=== PATIENT | male | born 1995 | race Caucasian/White ===

== ENCOUNTER 2019-04-01 23:32 | Emergency (ER) | payer OTHER, SELFPAY ==
[2019-04-01 23:34] VITALS: BP 155/96; PULSE 83; RESP 16; TEMP 35.5; O2SAT 97; BMI 30.7
--- NOTE | 2019-04-02 00:32 | ED.DCSUM_ITS ---
History of Present Illness Chief Complaint: Laceration Detail of Chief Complaint: Bursal surface left hand and left ring finger Informant: Patient Occurred: Today Mechanism/Context: Injury, Incised, Work Related Current Severity: 11/14 Maximum Severity: 10 Worsened by: Palpation Relieved by: Rest Associated Symptoms: Negative for: Parasthesia, Weakness, Loss of Funtion Narrative: Patient is a 23-year-old [id number] male who presents with laceration to the dorsal surface of his left hand over the extensor commonest tendon to the long finger and a flap-like laceration dorsal surface left ring finger over the middle phalanx. Tetanus shot was 1.5 years ago. He denies paresthesia, anesthesia or motor weakness. He has no other complaints. Tetanus Immunization: <5 years Prior similar symptoms: No Recent Illness/Hospitalization: No Past Medical History - Allergies and Home Meds Allergies/Adverse Reactions: Allergies amoxicillin Allergy (Verified 09/20/17 23:49) Stacey Primary Care Physician: ,David [GROUP OF PHYSICIANS] - 7 Days for suture removal Vera Frias DO [Primary Care Provider] - Prior records reviewed: No Past Medical History: None Surgical History: no surgical history Lives: Spouse/ Significant Other Smoking Status: Current every day smoker Review of Systems Musculoskeletal: Reports: Extremity Pain - Left ring finger. Denies: Myalgias, Arthralgias, Neck pain, Back pain, Swelling, -, - Skin: Reports: Wounds. Denies: Rash, Abrasions Neurological: Denies: Weakness, Parasthesia, Numbness Hematologic: Denies: Easy bruising, Easy bleeding Physical Exam Vital Signs/Narrative: Vital Signs Temp Pulse Resp BP Pulse Ox 04/01/19 23:34 96 F L 83 16 155/96 H 97 Left Forearm: Negative for: Abrasion, Contusion, Deformity, Edema, Hematoma, L imited ROM, - Left Wrist: Negative for: Abrasion, Contusion, Deformity, Edema, Hematoma, Limited ROM, - Left Hand: - - Is a gaping 1 cm laceration dorsal surface left hand. The extensor commonest tendon to the left long finger lies under the laceration. The tendon is not visualized. Functionally the extensor tendon is intact.. Negative for: Abrasion, Contusion, Deformity, Edema, Hematoma, Limited ROM Left Finger: - - There is a circular flap type laceration dorsal surface left ring finger over the middle phalanx. The extensor commonest tendon is intact. Sensation is intact. Capillary refill is normal. The laceration will require repair.. Negative for: Abrasion, Contusion, Deformity, Hematoma, Limited ROM General: Well nourished, Well developed, Obese Head: Normocephalic, Atraumatic Eyes: Perrl, EOMI. Negative for: Pale conjunctiva, Scleral icterus ENT: No Trauma, Moist Mucous Membranes Neck: Nontender, Full ROM Cardiovascular: Regular rate, Regular rhythm, No murmurs Respiratory: No distress Skin: Normal color, No rash, Trauma - Described under the extremity portion of the chart Neurological: Alert, Oriented x3, Cranial nerves II-XII grossly intact, Normal Strength, Normal Sensation Psychological: Normal affect Diagnostic/Tx/Re-eval - Medical Decision Making She has 2 lacerations which will require repair. Please read procedure note. Imaging is not indicated. Procedures - Lacerations No standard instances Length: 0.59 in - Dorsum left hand Depth: Sub Q Shape: Irregular Prep: Sterile Conditions, Shure-Clens Irrigated (ml): 100 Number of Sutures/Donny: 3 Suture Information: Ethilon, 5-0 Procedure(s): Patient had a flap type laceration dorsal left ring finger over the middle phalanx. Total circumference 2.1 cm. The wound was prepped draped sterile manner. The wound was excised 1% lidocaine. The wound was irrigated with 100 cc of normal saline. Simple interrupted stitches were placed using 5-0 Ethilon. ED Disposition - Plan for ED Patient: Disposition: Home or Assisted Living Diagnosis: Laceration of left hand without complication, including fingers Instructions: ED Laceration Hand Referrals: Vera Frias DO [Primary Care Provider] - [facility] [GROUP OF PHYSICIANS] - 7 Days for suture removal Additional Instructions: Clean wound with peroxide and Q-tip 3 times a day then apply bacitracin ointment. Sutures out in 7 days.
[2019-04-02 01:01] VITALS: BP 149/90; PULSE 80; RESP 15; O2SAT 100
== END 2019-04-02 01:05 | disposition home or self-care (01) ==
LOC: ED 04-02 00:40
PROVIDERS: Emergency Provider Emergency Medicine
DX: S61.411A Laceration without foreign body of right hand, initial encounter (principal); S61.214A Laceration without foreign body of right ring finger without damage to nail, initial encounter; F17.200 Nicotine dependence, unspecified, uncomplicated; W26.9XXA Contact with unspecified sharp object(s), initial encounter; Y93.89 Activity, other specified; Y92.89 Other specified places as the place of occurrence of the external cause; Y99.0 Civilian activity done for income or pay
CPT/HCPCS: 12002; 99284

== ENCOUNTER 2019-06-30 03:44 | Emergency (ER) | payer OTHER, SELFPAY ==
[2019-06-30 03:45] VITALS: BP 145/107; PULSE 90; RESP 16; TEMP 36.7; O2SAT 100; BMI 31.4
--- NOTE | 2019-06-30 04:17 | ED.DCSUM_ITS ---
- ER Visit Summary Date of Service: 06/30/19 Chief Complaint: Left hand injury History of Present Illness: The patient is a 23 M who presents with left hand injury that occurred at work tonight. Patient states it was crushed in a machine at work. Patient describes pain as throbbing. Patient states ice has been helping with the pain. Patient admits to some tingling in his distal index and long fingers. Patient states his last tetanus is up-to-date. Physical Examination: Vital signs are stable. Patient is afebrile. Patient is in no acute distress. Musculoskeletal exam reveals tenderness over the left thumb, left index finger, and left long finger. There is a subungual hematoma noted over the left thumb of approximately 50% of the nailbed. Range of motion was slightly limited in flexion of the IP joint of the left thumb secondary to pain. Sensation was intact to light touch in all digits. Capillary refill is less than 2 seconds in all digits. There are superficial abrasions over the left index and long fingers. Test Results: X-rays of the left hand were obtained. There is no acute fracture. These are interpreted by the radiologist and myself. Emergency Department Course and Treatment: The nail plate of the left thumb was trephinated with 4 small holes using the tip of an 18-gauge needle. Patient felt better. Patient was instructed to ice and elevate the left hand. Patient was instructed to follow-up with his primary care physician or [facility] in 3-5 days. Patient understood and was agreeable with the plan. All questions were answered. Disposition: Discharge home Impression: Left hand contusion This note was generated with [employer] dictation software. It may contain incorrect words, spelling, and punctuation that were not noted in review of the chart prior to signing ED Disposition - Plan for ED Patient: Disposition: Home or Assisted Living Diagnosis: Contusion of left hand, initial encounter Instructions: CRUSH INJURY, Hand/Finger Referrals: Vera Frias DO [Primary Care Provider] - 3-5 Days [facility] [GROUP OF PHYSICIANS] - 3-5 Days
--- NOTE | 2019-06-30 04:34 | RAD_ITS ---
HISTORY: HISTORY: HAND TRAUMA, CRUSHING INJURY XR Hand Min 3 Views COMPARISON: None FINDINGS: # of images incl. paperwork: 3 3 views of the left hand. Findings: No fracture or subluxation. No osseous or soft tissue abnormality. No significant joint space narrowing. No radiopaque foreign body. RAD/Hand Min 3 Views IMPRESSION: Normal left hand. at 0455 Reported and signed by: Domo Powell MD Electronically Signed: Domo Powell MD at 4:54 EDT Tel , Service support ,
== END 2019-06-30 05:27 | disposition home or self-care (01) ==
PROVIDERS: Emergency Provider Emergency Medicine
DX: S60.222A Contusion of left hand, initial encounter (principal); S60.112A Contusion of left thumb with damage to nail, initial encounter; W31.9XXA Contact with unspecified machinery, initial encounter; Y93.89 Activity, other specified; Y92.89 Other specified places as the place of occurrence of the external cause; Y99.0 Civilian activity done for income or pay
CPT/HCPCS: 11740; 73130; 99282